=== PATIENT | male | born 1940 | race Caucasian/White ===

== ENCOUNTER 2017-10-25 14:52 | Emergency (ER) | payer OTHER ==
--- NOTE | 2017-10-25 16:11 | EDPHY ---
General - History Smoking Status: Never smoked Time Seen by Provider: 10/25/17 16:04 Narrative: CHIEF COMPLAINT: knee injury HISTORY OF PRESENT ILLNESS: Patient presents with complaints of swelling and hematoma to the left knee. He states that he tripped on Wednesday night, striking the knee "on the tarmac." He sustained a small abrasion but has minimal to no pain. He now has concern over a hematoma the thinks maybe the bursa. It is limiting his range of motion but it is not painful. He has no complaints distally. He has no headache, loss of consciousness or neck pain. No chest, back or abdominal pain. Tetanus status is in question. He lives in [facility] and is scheduled to return home home on Wednesday. No other associated complaints or modifying factors ESTABLISHED ORTHOPEDIST: None locally REVIEW OF SYSTEMS: Ten systems reviewed and are negative unless otherwise noted in the HPI PAST MEDICAL HISTORY: Gout, low back pain, kidney adenocarcinoma, renal artery fistula, diabetes mellitus PAST SURGICAL HISTORY: SOCIAL HISTORY: Nonsmoker. 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 Lives in [facility]. Originally from the . visiting until Wednesday FAMILY HISTORY: Noncontributory EXAMINATION: General Appearance: Alert, no distress HEENT: Normocephalic, atraumatic. No hematoma or depression. No Kumar sign. No raccoon eyes. Cardiovascular: Symmetric DP and PT pulses 2+. Good signs of perfusion to the left lower extremities. Neurological: A&O, light sensory symmetric, ankle great toe strength symmetric. Skin: Warm and dry, no rash. Superficial abrasion to the left anterior knee measuring 1.5 x 2 cm. No laceration or deep puncture. There is an adjacent area of bursitis that does not appear to be infected. Extremities: Left knee suprapatellar traumatic bursitis. There is also an adjacent abrasion that is mild. There is no puncture. No cellulitis. No evidence of compartment syndrome or DVT. Full range of motion of both lower extremities at the ankle, knee and hips. No evidence of septic joint. Psychiatric: Mood and affect normal DIFFERENTIAL DIAGNOSES: Including but not limited to traumatic bursitis, bursitis, infected bursitis, septic joint, fracture, sprain, strain MDM: 4:10 p.m. Suspected traumatic bursitis to the left knee suprapatellar. Full range of motion. No evidence of septic joint, cellulitis or infection. He has no pain when ambulatory. Tetanus is in question we will update this here. I have ordered x-ray and will re-evaluate. 5:05 p.m. Osteoarthritic changes on x-ray with no acute findings other than the effusion. Patient has full range of motion with no evidence of septic joint or difficulty. At his request I did attempt to aspirate the bursa, but the hematoma completely congealed. I was unable to aspirate any fluid. I did not incise. Instead the wound was further prepped and dressed with a sterile dressing. We discussed Keflex antibiotic prophylaxis. We discussed definitive care with outpatient wound care, general surgeon or his physician backwards pain. He is comfortable this plan. He is fully ambulatory difficulty. Discharged home stable condition. SUPERVISION: This patient was independently evaluated without direct involvement of or examination by the attending physician. (Moshe Meza) Medical Decision Making: I did not see this patient while he was in the emergency department. However his care was discussed with the PA while the patient was in the department. I agree with treatment plan and management (Darinel Sena) - Diagnostics Imaging Results: Imaging Impressions Knee X-Ray 10/25/17 16:11 Impression: 1. Extensive anterior soft tissue swelling with a small joint effusion with no acute osseous findings. 2. 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 3. Additional findings as above. - Objective Vital Signs: Initial Vital Signs Temperature (C) 36.6 C 10/25/17 15:00 Heart Rate 102 H 10/25/17 15:00 Respiratory Rate 18 10/25/17 15:00 Blood Pressure 128/80 H 10/25/17 15:00 O2 Sat (%) 95 10/25/17 15:00 O2 Delivery Mode Room Air Allergies/Adverse Reactions: ibuprofen Allergy (Verified 10/25/17 14:58) Home Medications: Medication Instructions Recorded Allopurinol 10/25/17 Cephalexin [Keflex (*)] 500 mg PO QID #40 cap 10/25/17 Doxazosin Mesylate 10/25/17 Furosemide 10/25/17 Gemfibrozil 10/25/17 KETOROLAC TROMETHAMINE 10/25/17 ZOLPIDEM TARTRATE 10/25/17 metFORMIN SR 10/25/17 Medications Given: Discontinued Medications Diphtheria/Tetanus/Acell Pertussis (Boostrix) 0.5 ml IM .ONCE ONE Stop: 10/25/17 16:13 Last Admin: 10/25/17 16:44 Dose: 0.5 ml Departure - Departure Disposition: Home, Routine, Self-Care Clinical Impression: Traumatic bursitis Condition: Good Instructions: Knee Bursitis (ED) Additional Instructions: 1. Antibiotic prophylaxis to completion 2. Contact your physician back in [facility] to be seen immediately upon return 3. I provided the information for General surgery and [facility] should you wish to be evaluated prior to returning home 4. Warm compresses 4 times daily to the left knee 5. ED precautions for redness, warmth, fever, any pain in the knee or difficulty bending or straightening the knee Referrals: Irina White MD [Medical Doctor] - As per Instructions [facility] [Clinic] - As per Instructions Prescriptions: Cephalexin [Keflex (*)] 500 mg PO QID #40 cap
[2017-10-25] MEDS ORDERED: TDAP ADULT 0.5 ML INJ (BOOSTRIX) IM ONE (16:12)
[2017-10-25 17:24] VITALS: BP 140/93
== END 2017-10-25 17:25 | disposition home or self-care (01) ==
DX: M70.50 Other bursitis of knee, unspecified knee (principal); M17.12 Unilateral primary osteoarthritis, left knee; Z23 Encounter for immunization; W01.198A Fall on same level from slipping, tripping and stumbling with subsequent striking against other object, initial encounter; Y92.9 Unspecified place or not applicable

== ENCOUNTER 2017-10-27 14:02 | Emergency (ER) | payer OTHER ==
[2017-10-27 14:07] VITALS: BP 134/75
--- NOTE | 2017-10-27 14:22 | EDPHY ---
H & P Stated Complaint: Seen yesterday for Bursitis worse today, leaving Wednesday on plane Source: Patient Exam Limitations: No limitations - Personal History Current Tetanus/Diphtheria Vaccine: Yes Tetanus Vaccine Date: 10/26/2017 - Medical/Surgical History Hx Asthma: No Hx Chronic Respiratory Disease: No Hx Diabetes: Yes Hx Cardiac Disease: No Hx Renal Disease: Yes Hx Cirrhosis: No Hx Alcoholism: No Hx HIV/AIDS: No Hx Splenectomy or Spleen Trauma: No Other PMH: gout, back sx, kidney CA, renal artery fistula, DM - Social History Smoking Status: Never smoked Time Seen by Provider: 10/27/17 14:13 HPI/ROS: HPI: This is a 77-year-old male who presents with Chief Complaint: Seen yesterday for Bursitis worse today, leaving Wednesday on plane Location: Left knee Quality: Pain Duration: 4 days Signs and Symptoms: No bleeding, no radiation, no numbness, no weakness, no tingling, no incontinence, no decreased range of motion, + swelling, + pain, no fever Timing: Acute Severity: [id number] Context: Patient fell directly on his left knee approximately 4 days ago and sustained a hematoma to his left knee. He was seen in this emergency yesterday with x-rays showing effusion/hematoma and degenerative changes. Joint aspiration was attempted but unable to perform secondary to hematoma. Patient was placed on Keflex which she reports he has been compliant with. He is concerned with pain control as he does have some knee pain that is not being relieved by Tylenol. Patient is originally from [facility] and set to return tomorrow. He reports he has a follow-up appointment with his primary care provider on Wednesday. Patient has been using an Magan wrap and Coban to immobilize the joint. Patient reports that he has limited activity using his left lower extremity over the past few days. Modifying Factors: Keflex and Tylenol Comment: ROS: A comprehensive 10 system review of systems is otherwise negative aside from elements mentioned in the history of present illness. 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 Nonsmoker. CONSTITUTIONAL: Extremely polite and nontoxic-appearing elderly white male, awake and alert, no obvious distress HEENT: Atraumatic and normocephalic. NECK: supple EXTREMITIES: 2/2 pulses, strength 5/5, left KNEE: Moderate effusion/hematoma, bruising extended posteriorly and medial into the right thigh, no medial and lateral joint line tenderness, full extension to 180, flexion to 90. No pain with varus and valgus exam. No pain with anterior drawer or posterior drawer test. DIP/PIP/MCP flexion/extension intact with good light touch sensation. no deformities, no clubbing, no cyanosis or edema. NEUROLOGICAL: no focal neuro deficits. GCS 15. Light touch sensation intact. SKIN: Warm and dry, no erythema. no rash. Good capillary refill. (Ashia Armstrong) Constitutional: Initial Vital Signs Temperature (C) 36.6 C 10/27/17 14:03 Heart Rate 79 10/27/17 14:03 Respiratory Rate 16 10/27/17 14:03 Blood Pressure 134/75 H 10/27/17 14:03 O2 Sat (%) 94 10/27/17 14:03 O2 Delivery Mode Room Air Allergies/Adverse Reactions: ibuprofen Allergy (Verified 10/25/17 14:58) Home Medications: Medication Instructions Recorded Allopurinol 10/25/17 Cephalexin [Keflex (*)] 500 mg PO QID #40 cap 10/25/17 Doxazosin Mesylate 10/25/17 Furosemide 10/25/17 Gemfibrozil 10/25/17 KETOROLAC TROMETHAMINE 10/25/17 ZOLPIDEM TARTRATE 10/25/17 metFORMIN SR 10/25/17 oxyCODONE/APAP 5/325 [Percocet 1 - 2 tab PO Q4H PRN #10 tab 10/27/17 5/325 (*)] Medical Decision Making ED Course/Re-evaluation: Vital signs reviewed and stable upon arrival. Wound is not showing any signs of infection. Offered patient knee immobilizer and crutches and he politely declined. I offered patient an MRI and he politely declined. He has been using Coban and Magan wrap on his left knee. Supplies provided to the patient. He is returning tomorrow to [facility] and will follow up with his primary care provider on Wednesday. Patient did request prescription for pain medications for travel and this was provided. No signs of neurovascular compromise/tenting of skin/compartment syndrome/ extremities and joints examined above and below area of concern and are neurovascularly intact/cellulitis. (Ashia Armstrong) I did not see this patient while he was in the emergency department. However his care has been discussed with the PA while the patient is in the department. I agree with treatment plan and management (Darinel Sena) Differential Diagnosis: Differential diagnosis includes but is not limited to knee internal derangement , traumatic hematoma, cellulitis, abscess, joint effusion, fracture. (Ashia Armstrong) Departure - Departure Disposition: Home, Routine, Self-Care Clinical Impression: Visit for wound check Traumatic hematoma of left knee Qualifiers: Encounter type: initial encounter Qualified Code(s): S80.02XA - Contusion of left knee, initial encounter Condition: Good Instructions: Oxycodone/Acetaminophen (By mouth), Hematoma (ED) Additional Instructions: Wear the compression dressing until hematoma is fully resolved. Take Tylenol 650 mg every 4 hours as needed for pain. Use Percocet every 6 hours as needed for severe/break through pain. Do not use Tylenol and Percocet concomitantly. Apply warm compresses for 30 minutes at a time; 2-3 times per day for the next 1 -2 days. Continue to take Keflex as prescribed. Activity:Do not bear weight and limit injured extremity until hematoma has resolved. Avoid flexing and extending your knee. Follow up with Orthopedics in 5-7 days at which time they will evaluate and recommend with you if conservative management versus further treatment is indicated. Return to the ER immediately if you experience redness, red streaks, have fevers /chills, flu like symptoms, limited range of motion, or any other symptoms that concern you. Referrals: PCP Not In,Evangelina [Medical Doctor] - As per Instructions Hector Lloyd MD [Medical Doctor] - As per Instructions Prescriptions: oxyCODONE/APAP 5/325 [Percocet 5/325 (*)] 1 - 2 tab PO Q4H PRN #10 tab PRN Reason: Pain, Severe
== END 2017-10-27 14:41 | disposition home or self-care (01) ==
DX: Z48.00 Encounter for change or removal of nonsurgical wound dressing (principal); S80.02XD Contusion of left knee, subsequent encounter; M70.52 Other bursitis of knee, left knee